=== PATIENT | male | born 1945 | race Two or more races ===

== ENCOUNTER 2017-12-18 21:07 | Emergency (ER) | payer SELFPAY ==
[2017-12-18 21:45] VITALS: BP 148/79; PULSE 81; TEMP 98.1; BMI 29.2
--- NOTE | 2017-12-18 21:48 | PDOC ---
History of Present Illness - General Chief Complaint: Shortness of Breath Stated Complaint: SOB Time Seen by Provider: 12/18/17 21:16 History Source: Patient, Family Exam Limitations: Language Barrier - History of Present Illness Initial Comments: 12/18/17 21:43 72 y/o M with PMH of HTN, renetta came hospital because of shortness of breath. Patient states that difficulty in breathing started 4 days ago and is slowly progressing. He also states that he gets short of breath on walking but denies orthopnea, paroxysmal dyspnea. He denies any pain in chest on breathing. He denies chest pain, palpitations. He denies cough, fever and chills. He reports sneezing which started today. He denies sick contact. Patient also states that he recently came from . His daughter states that [address] [place] he had stroke with left sided residual weakness. Social: stopped smoking 25 years ago, Use to smoke 4 cig a day. Smoked for 20 years. 12/18/17 21:51 Past History - Past Medical History Allergies/Adverse Reactions: Allergies Allergy/AdvReac Type Severity Reaction Status Date / Time No Known Allergies Allergy Verified 12/18/17 21:45 Home Medications: Ambulatory Orders Azithromycin 250 mg PO DAILY #4 tablet 12/18/17 Review of Systems - Review of Systems Constitutional: No: Chills, Fever, Night Sweats HEENTM: No: Throat Pain, Throat Swelling Respiratory: Yes: Shortness of Breath, SOB with Exertion. No: Cough, Orthopnea , Stridor, Wheezing Cardiac (ROS): No: Chest Pain, Edema, Irregular Heart Rate, Lightheadedness, Palpitations, Syncope ABD/GI: No: Constipated, Diarrhea, Nausea, Vomiting : No: Burning, Dysuria, Discharge Neurological: No: Headache, Tremors, Weakness *Physical Exam - Physical Exam General Appearance: Yes: Appropriately Dressed. No: Apparent Distress HEENT: positive: Normal ENT Inspection, Normal Voice Neck: positive: Trachea midline, Supple Respiratory/Chest: positive: Lungs Clear, Normal Breath Sounds. negative: Chest Tender, Respiratory Distress, Accessory Muscle Use, Crackles, Rhonchi, Stridor Cardiovascular: positive: Regular Rhythm, Regular Rate, S1, S2. negative: Murmur Gastrointestinal/Abdominal: positive: Normal Bowel Sounds, Flat, Soft. negative : Guarding, Tenderness Musculoskeletal: negative: CVA Tenderness Extremity: positive: Normal Inspection. negative: Pedal Edema Neurologic: positive: hl7 interface developer II-XII NML intact, Fully Oriented, Alert, Normal Mood/ Affect, Normal Response, Motor Strength 08/17 ED Treatment Course - LABORATORY CBC & Chemistry Diagram: 12/18/17 22:14 12/18/17 22:14 - RADIOLOGY Radiology Studies Ordered: Category Date Time Status CHEST X-RAY PORTABLE* [RAD] Routine Radiology 12/18/17 21:33 Ordered Medical Decision Making - Medical Decision Making 12/18/17 21:50 72 y/o M with PMH of HTN, renetta came hospital because of shortness of breath. Patient states that difficulty in breathing started 4 days ago and is slowly progressing. He also states that he gets short of breath on walking but denies orthopnea, paroxysmal dyspnea. He denies any pain in chest on breathing. He denies chest pain, palpitations. He denies cough, fever and chills. He reports sneezing which started today. He denies sick contact. Patient also states that he recently came from . His daughter states that 3 week ago in he had stroke with left sided residual weakness. we will get cbc, cmp, ekg, cxr, ddimer. flu test. 12/18/17 23:17 labs reviewed. CBCD WBC 7.2 K/mm3 (4.0-10.0) 12/18/17 22:14 RBC 4.41 M/mm3 (4.00-5.60) 12/18/17 22:14 Hgb 14.0 GM/dL (11.7-16.9) 12/18/17 22:14 Hct 41.2 % (35.4-49) 12/18/17 22:14 MCV 93.4 fl (80-96) 12/18/17 22:14 MCHC 34.0 g/dl (32.0-35.9) 12/18/17 22:14 RDW 13.6 % (11.9-15.9) 12/18/17 22:14 Plt Count 225 K/MM3 (134-434) 12/18/17 22:14 MPV 9.4 fl (7.5-11.1) 12/18/17 22:14 CMP Sodium 139 mmol/L (136-145) 09/05/18 22:14 Potassium 4.0 mmol/L (3.5-5.1) 12/18/17 22:14 Chloride 104 mmol/L (98-107) 12/18/17 22:14 Carbon Dioxide 25 mmol/L (21-32) 12/18/17 22:14 Anion Gap 10 MMOL/L (8-16) 12/18/17 22:14 BUN 21 mg/dL (7-18) H 12/18/17 22:14 Creatinine 1.2 mg/dL (0.7-1.3) 12/18/17 22:14 Creat Clearance w eGFR 59.51 (>60) 12/18/17 22:14 Random Glucose 102 mg/dL (74-106) 12/18/17 22:14 Calcium 9.2 mg/dL (8.5-10.1) 12/18/17 22:14 Total Bilirubin 0.3 mg/dL (0.2-1.0) 12/18/17 22:14 AST 16 U/L (15-37) 12/18/17 22:14 ALT 20 U/L (12-78) 12/18/17 22:14 Alkaline Phosphatase 62 U/L (45-117) 12/18/17 22:14 Total Protein 7.8 g/dl (6.4-8.2) 12/18/17 22:14 Albumin 3.7 g/dl (3.4-5.0) 12/18/17 22:14 CARDIAC ENZYMES Creatine Kinase 116 IU/L (39-308) 12/18/17 22:14 Troponin I < 0.02 ng/ml (0.00-0.05) 12/18/17 22:14 EKG: NSR. CXR reviewed 12/18/17 23:26 we will give him 5 day course of azithromycin. Plan discussed with attending Dr. Garcia Pt can be discharged home. *DC/Admit/Observation/Transfer Diagnosis at time of Disposition: Infiltrate of lower lobe of right lung present on imaging study - Discharge Dispostion Disposition: HOME Condition at time of disposition: Stable Decision to Admit order: No - Prescriptions Prescriptions: Azithromycin 250 mg PO DAILY #4 tablet - Referrals - Patient Instructions Additional Instructions: Take all the medications as prescribed. If you develop fever, chills or shortness of breath get worse go to nearest hospital. - Post Discharge Activity
[2017-12-18] MEDS ORDERED: LORATADINE 10 MG TABLET PO ONE (22:00)
--- NOTE | 2017-12-18 22:06 | PDOC ---
Attending Attestation - HPI HPI: 12/18/17 22:16 The patient is a 72 year old male presenting with his family, with a significant past medical history of HTN and stroke (3 weeks ago with left sided residual weakness), who presents to the ED complaining of shortness of breath for the past 4 days that has been worsening. He notes that his shortness of breath is exacerbated when he walks. He denies any sick contacts but notes that he recently came from [facility] [place], [place] country. The patient denies chest pain, headache and dizziness. Denies fever, chills, nausea, vomiting, diarrhea or constipation. Allergies: None Past surgical history: None reported Social History: 20 years cigar smoker (4 a day). Quit 25 years ago. - Physicial Exam PE: 12/18/17 22:17 Constitutional: Awake, alert, oriented. No acute distress. Head: Normocephalic. Atraumatic Eyes: PERRL. EOMI. Conjunctivae are not pale. ENT: Mucous membranes are moist and intact. Posterior pharynx without exudates or erythema. Uvula midline. Neck: Supple. Full ROM. No lymphadenopathy. Cardiovascular: Regular rate. Regular rhythm. S1, S2 regular. Distal pulses are 2+ and symmetric. Pulmonary/Chest: No evidence of respiratory distress. Clear to auscultation bilaterally No wheezing, rales or rhonchi. Abdominal: Soft and non-distended. There is no tenderness. No rebound, guarding or rigidity. No organomegaly. No palpable masses. Good bowel sounds. Back: No CVA tenderness. Musculoskeletal: No edema. No cyanosis. No clubbing. Full range of motion in all extremities. Nocalf tenderness. Radial/pedal pulses are intact and 2+ bilaterally Skin: Skin is warm and dry. No petechiae. No purpura. Neurological: Alert and oriented to person, place, and time. Cranial nerves II -XII are grossly intact. Normal speech. Strength is grossly symmetric. No sensory deficits. Psychiatric: Good eye contact. Normal interaction, affect and behavior. <Adolfo Newsome - Last Filed: 12/18/17 22:16> - Resident Resident Name: Florentin Munguia - ED Attending Attestation I have performed the following: I have examined & evaluated the patient, The case was reviewed & discussed with the resident, I agree w/resident's findings & plan, Exceptions are as noted - Medical Decision Making 12/18/17 22:06 I, Dr. Bryanna Garcia, DO, attest that this document has been prepared under my direction and personally reviewed by me in its entirety. I further attest, that it accurately reflects all work, treatment, procedures and medical decision -making performed by me. 12/18/17 23:19 a/p: 72yo male with episodes of sob -no cp/palpitations/cough -no f/c -pt resting comfortably in the bed -recently traveled from -no sob at this time -episodes of SOB resolve with drinking water at home and only last a few seconds -no pleuritic cp or leg swelling -no abd pain, n/v/d -no other complaints -will send labs, ekg, cxr -will monitor and reassess 12/18/17 23:21 trop negative dimer negative poss haziness to RLL on cxr - poor inspiratory film will give azithromycin stable for d/c to home <Bryanna Garcia - Last Filed: 12/18/17 23:22> Heart Score/ECG Review - ECG Intrepretation Comment:: 12/18/17 23:20 sinus at 78, nl axis, nl interval, no acute st/t wave findings <Bryanna Garcia - Last Filed: 12/18/17 23:22>
[2017-12-18 22:25] LABS: BASO % 0.8 % (0-2.0); EOS % 9.2 % (0-4.5); HEMATOCRIT 41.2 % (35.4-49); LYMPH % 16.8 % (8-40); MCH 31.7 pg (25.7-33.7); MEAN CELL VOLUME 93.4 fl (80-96); MEAN PLT VOLUME 9.4 fl (7.5-11.1); MONO % 13.1 % (3.8-10.2); NEUT % 60.1 % (42.8-82.8); PLATELET COUNT 225 K/MM3 (134-434); RBC 4.41 M/mm3 (4.00-5.60); RDW 13.6 % (11.9-15.9); WHITE BLOOD COUNT 7.2 K/mm3 (4.0-10.0)
[2017-12-18 22:48] LABS: ALBUMIN 3.7 g/dl (3.4-5.0); ANION GAP 10 MMOL/L (8-16); BILIRUBIN,TOTAL 0.3 mg/dL (0.2-1.0); BLOOD UREA NITROGEN 21 mg/dL (7-18); CALCIUM 9.2 mg/dL (8.5-10.1); CHLORIDE 104 mmol/L (98-107); CO2 25 mmol/L (21-32); CREATININE 1.2 mg/dL (0.7-1.3); GLUCOSE,RANDOM 102 mg/dL (74-106); SGOT/AST 16 U/L (15-37); SGPT/ALT 20 U/L (12-78); SODIUM 139 mmol/L (136-145); TOT PROT 7.8 g/dl (6.4-8.2)
[2017-12-18 22:49] LABS: ALK PHOS 62 U/L (45-117)
[2017-12-18] MEDS ORDERED: LORATADINE 10 MG TABLET ONE (23:03)
[2017-12-18] MEDS ORDERED: AZITHROMYCIN 250 MG TABLET PO ONE (23:28)
[2017-12-18] MEDS ORDERED: AZITHROMYCIN 250 MG TABLET ONE (23:58)
--- NOTE | 2017-12-19 13:43 | EKG ---
Test Reason : Blood Pressure : / mmHG Vent. Rate : 078 BPM Atrial Rate : 078 BPM P-R Int : 160 ms QRS Dur : 090 ms QT Int : 364 ms P-R-T Axes : 059 -15 029 degrees QTc Int : 414 ms NORMAL SINUS RHYTHM NORMAL ECG NO PREVIOUS ECGS AVAILABLE Confirmed by EMILY OJEDA MD ([id number]) on 12/19/2017 1:43:40 PM Referred By: Confirmed By:EMILY OJEDA MD
== END 2017-12-19 00:07 | disposition home or self-care (01) ==
LOC: JER 21:07
DX: R91.8 Other nonspecific abnormal finding of lung field (principal); I10 Essential (primary) hypertension; Z86.73 Personal history of transient ischemic attack (TIA), and cerebral infarction without residual deficits
CPT/HCPCS: 36415; 71045-TC-FY; 80053; 82550; 84484; 85025; 85379; 87804; 93005; 93010; 99281-25